=== PATIENT | female | born 1945 | race Caucasian/White ===

== ENCOUNTER 2021-06-08 03:47 | Inpatient (IN) ==
[2021-06-08] MEDS ORDERED: Ondansetron 4 MG/2 ML VIAL IVP PRN (06:35)
[2021-06-08] MEDS ORDERED: Naloxone 0.4 MG/ML INJ IVP PRN (06:35)
[2021-06-08] MEDS ORDERED: *HR* Promethazine 25 MG/ML VIAL IM PRN (06:35)
[2021-06-08] MEDS ORDERED: Vancomycin 1,750 MG in 0.9 % Sodium Chloride 250 ML IVPB SCH (07:00)
[2021-06-08] MEDS: Cefepime HCl 2,000 MG in 0.9 % Sodium Chloride Mini Bag 100 ML IVP SCH ×3 (07:46→23:37)
[2021-06-08] MEDS ORDERED: Isovue-370 500 ML BOTTLE IVP ONE (08:09)
[2021-06-08] MEDS: Ringers Solution, Lactated 1,000 ML IVC SCH ×2 (08:20→16:45)
[2021-06-08] MEDS ORDERED: Gadolinium Contrast Agent (WT Based) IV PRN (09:13)
[2021-06-08] MEDS ORDERED: Dextrose Gel 15 GM/37.5 ML TUBE PO PRN ×2 (09:15)
[2021-06-08] MEDS ORDERED: *HR* Dextrose 50 % in Water (Syg) 50 ML SYRINGE IVP PRN (09:15)
[2021-06-08] MEDS ORDERED: D5% in Water 1,000 ML IVC PRN (09:15)
[2021-06-08 09:22] LABS: Bilirubin,Urine Negative (Negative); Blood,Urine Small (Negative); Clarity,Urine Clear (Clear); Color,Urine Yellow (Yellow); Glucose,Urine (UA) Normal (Normal); Ketones,Urine Negative (Negative); Leukocyte Esterase,Urine Negative (Negative); Mucus,Urine Few per lpf (None-Few); Nitrite,Urine Negative (Negative); PH,Urine 6.5 pH Units (5.0-8.0); Protein,Urine 30 mg/dL (Neg-Trace); RBC,Urine 15-30 per hpf (0-3); Specific Gravity,Urine > 1.030 (1.010-1.025); Squamous Epithelial Cell,Urine Few per hpf (None-Few); WBC,Urine 0-3 per hpf (0-3)
[2021-06-08 10:48] LABS: % Iron Saturation 14 % (15-50); Iron 45 mcg/dL (50-170); Transferrin 223 mg/dL (203-362)
[2021-06-08 11:06] LABS: Ferritin 131 ng/mL (10-120)
[2021-06-08 11:11] LABS: Folate 16.1 ng/mL (3.0-16.0)
[2021-06-08] MEDS: Pantoprazole 40 MG VIAL IVP SCH (11:52)
[2021-06-08] MEDS ORDERED: Insulin LISPRO 300 UNITS/3 ML VIAL SUBQ SCH (12:00)
[2021-06-08] MEDS ORDERED: Lactulose Oral Soln 20 GM/30 ML UDC PO SCH (13:00)
[2021-06-08] MEDS: Vancomycin 1,500 MG/265 ML IV.SOLN IVPB SCH (16:45)
[2021-06-08] MEDS: *HR* Heparin 5,000 UNIT/ML VIAL SQ SCH (16:45)
[2021-06-08] MEDS: Insulin LISPRO 300 UNITS/3 ML VIAL SUBQ SCH ×2 (17:09→21:15)
[2021-06-08] MEDS: Lactulose Oral Soln 20 GM/30 ML UDC PO SCH (21:16)
[2021-06-09] MEDS: Vancomycin 1,500 MG/265 ML IV.SOLN IVPB SCH ×2 (03:46→17:50)
[2021-06-09] MEDS: *HR* Heparin 5,000 UNIT/ML VIAL SQ SCH ×2 (05:57→17:16)
[2021-06-09 06:59] LABS: Basophils # 0.1 K/mcL (0.0-0.2); Basophils % 0.8 %; Eosinophils # 0.2 K/mcL (0.0-0.6); Eosinophils % 2.5 %; Hematocrit 25.6 % (35.3-44.9); Hemoglobin 8.2 g/dL (11.5-15.4); Immature Granulocytes % 0.3 % (0-4); Immature Platelets 2.2 % (1.1-6.1); Lymphocytes # 0.9 K/mcL (0.6-4.6); Lymphocytes % 13.9 %; Mean Corpuscular Hemoglobin 35.2 pg (28.0-33.3); Mean Corpuscular Volume 109.9 fL (83.0-100.0); Mean Platelet Volume 10.3 fL (9.4-12.4); Monocytes # 0.8 K/mcL (0.0-1.3); Monocytes % 12.7 %; Neutrophils # 4.3 K/mcL (1.6-8.9); Platelet Count 84 K/mcL (140-400); Red Blood Count 2.33 M/mcL (3.82-4.97); Red Cell Distribution Width 17.6 % (11.5-14.5); Segmented Neutrophils % 69.8 %; White Blood Count 6.1 K/mcL (4.3-11.1)
[2021-06-09 07:17] LABS: Alanine Aminotransferase 22 Units/L (7-52); Albumin 2.7 g/dL (3.5-5.7); Alkaline Phosphatase 65 Units/L (34-104); Aspartate Amino Transferase 50 Units/L (13-39); BUN/Creatinine Ratio 26 (6-26); Bilirubin,Total 3.1 mg/dL (0.3-1.0); Blood Urea Nitrogen 14 mg/dL (8-23); Calcium 8.1 mg/dL (8.6-10.3); Carbon Dioxide 23 mEq/L (23-29); Chloride 105 mEq/L (98-107); Globulin 2.8 g/dL (2.4-3.5); Glucose 109 mg/dL (70-105); Osmolality,Calculated 281 (280-300); Potassium 3.6 mEq/L (3.5-5.1); Sodium 135 mEq/L (136-145); Total Protein 5.5 g/dL (6.4-8.9); eGFR For African Americans > 60 (> 60); eGFR For Non-African Americans > 60 (> 60)
[2021-06-09] MEDS: Lactulose Oral Soln 20 GM/30 ML UDC PO SCH ×2 (08:07→21:21)
[2021-06-09] MEDS: Insulin LISPRO 300 UNITS/3 ML VIAL SUBQ SCH ×4 (08:07→21:20)
[2021-06-09] MEDS: Pantoprazole 40 MG VIAL IVP SCH (09:35)
[2021-06-09] MEDS: Cefepime HCl 2,000 MG in 0.9 % Sodium Chloride Mini Bag 100 ML IVPB SCH ×2 (09:42→17:19)
[2021-06-09 10:42] LABS: INR 1.6; Prothrombin Time 17.4 Seconds (9.4-12.1)
[2021-06-09] MEDS: Acetaminophen 325 MG TABLET PO PRN (13:09)
[2021-06-10] MEDS: Cefepime HCl 2,000 MG in 0.9 % Sodium Chloride Mini Bag 100 ML IVPB SCH ×4 (00:13→23:28)
[2021-06-10] MEDS: Vancomycin 1,500 MG/265 ML IV.SOLN IVPB SCH ×2 (04:14→17:54)
[2021-06-10] MEDS: *HR* Heparin 5,000 UNIT/ML VIAL SQ SCH ×2 (05:36→17:53)
[2021-06-10] MEDS: Insulin LISPRO 300 UNITS/3 ML VIAL SUBQ SCH ×4 (08:17→20:17)
[2021-06-10] MEDS: Pantoprazole 40 MG VIAL IVP SCH (08:45)
[2021-06-10] MEDS: Lactulose Oral Soln 20 GM/30 ML UDC PO SCH ×2 (08:45→20:17)
[2021-06-10 11:42] LABS: Red Cell Distribution Width 17.6 % (11.5-14.5)
[2021-06-10 11:43] LABS: Basophils # 0.1 K/mcL (0.0-0.2); Basophils % 0.7 %; Eosinophils # 0.2 K/mcL (0.0-0.6); Eosinophils % 2.5 %; Hematocrit 26.6 % (35.3-44.9); Hemoglobin 8.8 g/dL (11.5-15.4); Immature Granulocytes % 0.4 % (0-4); Immature Platelets 2.4 % (1.1-6.1); Lymphocytes # 1.1 K/mcL (0.6-4.6); Lymphocytes % 15.7 %; Mean Corpuscular HGB Conc 33.1 g/dL (31.6-35.5); Mean Corpuscular Hemoglobin 36.5 pg (28.0-33.3); Mean Corpuscular Volume 110.4 fL (83.0-100.0); Mean Platelet Volume 10.6 fL (9.4-12.4); Monocytes # 0.9 K/mcL (0.0-1.3); Monocytes % 13.8 %; Neutrophils # 4.6 K/mcL (1.6-8.9); Platelet Count 127 K/mcL (140-400); Red Blood Count 2.41 M/mcL (3.82-4.97); Segmented Neutrophils % 66.9 %; White Blood Count 6.8 K/mcL (4.3-11.1)
[2021-06-10 11:57] LABS: BUN/Creatinine Ratio 24 (6-26); Blood Urea Nitrogen 15 mg/dL (8-23); Calcium 8.5 mg/dL (8.6-10.3); Carbon Dioxide 24 mEq/L (23-29); Chloride 105 mEq/L (98-107); Glucose 157 mg/dL (70-105); Osmolality,Calculated 284 (280-300); Potassium 4.1 mEq/L (3.5-5.1); Sodium 135 mEq/L (136-145); eGFR For African Americans > 60 (> 60); eGFR For Non-African Americans > 60 (> 60)
[2021-06-11 03:38] LABS: Basophils # 0.1 K/mcL (0.0-0.2); Eosinophils # 0.3 K/mcL (0.0-0.6); Eosinophils % 4.7 %; Hematocrit 27.5 % (35.3-44.9); Hemoglobin 8.8 g/dL (11.5-15.4); Immature Granulocytes % 0.3 % (0-4); Lymphocytes # 1.7 K/mcL (0.6-4.6); Lymphocytes % 27.9 %; Mean Corpuscular Hemoglobin 35.3 pg (28.0-33.3); Mean Corpuscular Volume 110.4 fL (83.0-100.0); Mean Platelet Volume 10.2 fL (9.4-12.4); Monocytes # 0.9 K/mcL (0.0-1.3); Neutrophils # 3.2 K/mcL (1.6-8.9); Platelet Count 106 K/mcL (140-400); Red Blood Count 2.49 M/mcL (3.82-4.97); Red Cell Distribution Width 17.4 % (11.5-14.5); Segmented Neutrophils % 51.1 %; White Blood Count 6.2 K/mcL (4.3-11.1)
[2021-06-11 03:48] LABS: BUN/Creatinine Ratio 29 (6-26); Blood Urea Nitrogen 14 mg/dL (8-23); Calcium 8.5 mg/dL (8.6-10.3); Carbon Dioxide 23 mEq/L (23-29); Chloride 109 mEq/L (98-107); Glucose 116 mg/dL (70-105); Osmolality,Calculated 285 (280-300); Potassium 3.7 mEq/L (3.5-5.1); Sodium 137 mEq/L (136-145); eGFR For African Americans > 60 (> 60); eGFR For Non-African Americans > 60 (> 60)
[2021-06-11] MEDS: Vancomycin 1,500 MG/265 ML IV.SOLN IVPB SCH (04:14)
[2021-06-11] MEDS: *HR* Heparin 5,000 UNIT/ML VIAL SQ SCH ×2 (05:37→18:20)
[2021-06-11] MEDS: Cefepime HCl 2,000 MG in 0.9 % Sodium Chloride Mini Bag 100 ML IVP SCH (07:03)
[2021-06-11] MEDS: Insulin LISPRO 300 UNITS/3 ML VIAL SUBQ SCH ×4 (07:59→22:08)
[2021-06-11] MEDS: Lactulose Oral Soln 20 GM/30 ML UDC PO SCH ×2 (08:23→22:09)
[2021-06-11] MEDS: Cefepime HCl 2,000 MG in 0.9 % Sodium Chloride Mini Bag 100 ML IVPB SCH (08:23)
[2021-06-11] MEDS: Pantoprazole 40 MG VIAL IVP SCH (08:23)
[2021-06-11] MEDS ORDERED: Vancomycin 1,250 MG/262.5 ML IV.SOLN IVPB SCH (16:00)
[2021-06-12] MEDS: Melatonin 3 MG TABLET PO PRN ×2 (00:04→21:11)
[2021-06-12] MEDS: Acetaminophen 325 MG TABLET PO PRN ×2 (00:04→21:11)
[2021-06-12 03:03] LABS: Basophils % 0.9 %; Hematocrit 25.7 % (35.3-44.9); Red Cell Distribution Width 17.2 % (11.5-14.5); Segmented Neutrophils % 52.5 %
[2021-06-12 03:05] LABS: Basophils # 0.1 K/mcL (0.0-0.2); Eosinophils # 0.4 K/mcL (0.0-0.6); Hemoglobin 8.5 g/dL (11.5-15.4); Immature Granulocytes % 0.6 % (0-4); Immature Platelets 1.9 % (1.1-6.1); Lymphocytes # 1.7 K/mcL (0.6-4.6); Lymphocytes % 25.8 %; Mean Corpuscular HGB Conc 33.1 g/dL (31.6-35.5); Mean Corpuscular Volume 108.9 fL (83.0-100.0); Mean Platelet Volume 10.1 fL (9.4-12.4); Monocytes # 0.9 K/mcL (0.0-1.3); Monocytes % 14.2 %; Neutrophils # 3.5 K/mcL (1.6-8.9); Platelet Count 125 K/mcL (140-400); Red Blood Count 2.36 M/mcL (3.82-4.97); White Blood Count 6.6 K/mcL (4.3-11.1)
[2021-06-12 03:20] LABS: BUN/Creatinine Ratio 22 (6-26); Blood Urea Nitrogen 11 mg/dL (8-23); Calcium 8.3 mg/dL (8.6-10.3); Carbon Dioxide 23 mEq/L (23-29); Chloride 108 mEq/L (98-107); Glucose 110 mg/dL (70-105); Osmolality,Calculated 282 (280-300); Potassium 3.7 mEq/L (3.5-5.1); Sodium 136 mEq/L (136-145); eGFR For African Americans > 60 (> 60); eGFR For Non-African Americans > 60 (> 60)
[2021-06-12] MEDS: *HR* Heparin 5,000 UNIT/ML VIAL SQ SCH ×2 (07:01→17:28)
[2021-06-12] MEDS: Insulin LISPRO 300 UNITS/3 ML VIAL SUBQ SCH ×4 (08:19→21:12)
[2021-06-12] MEDS: cephALEXin 500 MG CAPSULE PO SCH ×2 (08:26→21:11)
[2021-06-12] MEDS: Lactulose Oral Soln 20 GM/30 ML UDC PO SCH ×2 (08:26→21:11)
[2021-06-12] MEDS: Pantoprazole 40 MG VIAL IVP SCH (08:26)
[2021-06-12] MEDS: Amoxicillin 500 MG CAPSULE PO SCH ×2 (14:22→21:10)
[2021-06-12 17:53] LABS: Adenovirus Not Detected (Not Detect); Bordetella Pertussis Not Detected (Not Detect); Chlamydophila pneumoniae Not Detected (Not Detect); Coronavirus 229E Not Detected (Not Detect); Coronavirus HKU1 Not Detected (Not Detect); Coronavirus NL63 Not Detected (Not Detect); Coronavirus OC43 Not Detected (Not Detect); Human Metapneumovirus Not Detected (Not Detect); Human Rhinovirus/Enterovirus Not Detected (Not Detect); Influenza A Subtype 2009 H1 Not Detected (Not Detect); Influenza B Not Detected (Not Detect); Mycoplasma pneumoniae Not Detected (Not Detect); Parainfluenza Virus 1 Not Detected (Not Detect); Parainfluenza Virus 2 Not Detected (Not Detect); Parainfluenza Virus 3 Not Detected (Not Detect); Parainfluenza Virus 4 Not Detected (Not Detect); Respiratory Syncytial Virus Not Detected (Not Detect); SARS-CoV-2 Not Detected (Not Detect)
[2021-06-13 02:36] LABS: Red Cell Distribution Width 17.2 % (11.5-14.5)
[2021-06-13 02:38] LABS: Basophils # 0.1 K/mcL (0.0-0.2); Basophils % 0.8 %; Eosinophils % 7.2 %; Hematocrit 27.6 % (35.3-44.9); Immature Granulocytes % 1.3 % (0-4); Immature Platelets 2.1 % (1.1-6.1); Lymphocytes # 1.6 K/mcL (0.6-4.6); Lymphocytes % 25.4 %; Mean Corpuscular HGB Conc 32.6 g/dL (31.6-35.5); Mean Corpuscular Hemoglobin 36.1 pg (28.0-33.3); Mean Corpuscular Volume 110.8 fL (83.0-100.0); Mean Platelet Volume 9.8 fL (9.4-12.4); Monocytes # 0.8 K/mcL (0.0-1.3); Monocytes % 12.2 %; Neutrophils # 3.3 K/mcL (1.6-8.9); Platelet Count 143 K/mcL (140-400); Red Blood Count 2.49 M/mcL (3.82-4.97); Segmented Neutrophils % 53.1 %; White Blood Count 6.2 K/mcL (4.3-11.1)
[2021-06-13 02:44] LABS: Eosinophils # 0.5 K/mcL (0.0-0.6)
[2021-06-13 02:52] LABS: BUN/Creatinine Ratio 24 (6-26); Blood Urea Nitrogen 10 mg/dL (8-23); Calcium 8.4 mg/dL (8.6-10.3); Carbon Dioxide 24 mEq/L (23-29); Chloride 111 mEq/L (98-107); Glucose 104 mg/dL (70-105); Osmolality,Calculated 283 (280-300); Potassium 3.7 mEq/L (3.5-5.1); Sodium 137 mEq/L (136-145); eGFR For African Americans > 60 (> 60); eGFR For Non-African Americans > 60 (> 60)
[2021-06-13 02:58] LABS: Anisocytosis 1+ (Not Present); Macrocytosis Present (Not Present); Platelet Estimate Normal (Normal); Polychromasia 1+ (Not Present); Reactive Lymphocytes Present (Not Present)
[2021-06-13] MEDS: *HR* Heparin 5,000 UNIT/ML VIAL SQ SCH (06:38)
[2021-06-13 07:09] VITALS: BP 129/72; PULSE 62; TEMP 97.8; O2SAT 96
[2021-06-13] MEDS: Insulin LISPRO 300 UNITS/3 ML VIAL SUBQ SCH (07:12)
[2021-06-13] MEDS: Lactulose Oral Soln 20 GM/30 ML UDC PO SCH (08:21)
[2021-06-13] MEDS: Pantoprazole 40 MG VIAL IVP SCH (08:21)
== END 2021-06-13 10:51 | DRG 871 ==
LOC: SUATTDRO 06:21 → 2NENU 06:21 → 3BNU 06-09 12:38
PROVIDERS: ADMIT Internal Medicine; ATTEND Internal Medicine

== ENCOUNTER 2021-07-30 17:50 | Observation (INO) ==
[2021-07-30] MEDS ORDERED: Ondansetron ODT 4 MG TAB.RAPDIS SL PRN (21:15)
[2021-07-30] MEDS ORDERED: Naloxone 0.4 MG/ML INJ IVP PRN (21:15)
[2021-07-30] MEDS ORDERED: Melatonin 3 MG TABLET PO PRN (21:15)
[2021-07-30 21:43] LABS: Basophils % 0.8 %; Eosinophils # 0.1 K/mcL (0.0-0.6); Eosinophils % 2.1 %; Hematocrit 31.9 % (35.3-44.9); Hemoglobin 11.1 g/dL (11.5-15.4); Immature Granulocytes % 0.2 % (0-4); Lymphocytes # 1.8 K/mcL (0.6-4.6); Lymphocytes % 35.3 %; Mean Corpuscular HGB Conc 34.8 g/dL (31.6-35.5); Mean Corpuscular Hemoglobin 36.2 pg (28.0-33.3); Mean Corpuscular Volume 103.9 fL (83.0-100.0); Mean Platelet Volume 11.4 fL (9.4-12.4); Monocytes # 0.7 K/mcL (0.0-1.3); Monocytes % 13.2 %; Neutrophils # 2.5 K/mcL (1.6-8.9); Red Blood Count 3.07 M/mcL (3.82-4.97); Red Cell Distribution Width 15.9 % (11.5-14.5); Segmented Neutrophils % 48.4 %; White Blood Count 5.2 K/mcL (4.3-11.1)
[2021-07-30 21:44] LABS: Platelet Count 72 K/mcL (140-400)
[2021-07-30 22:01] LABS: Alanine Aminotransferase 25 Units/L (7-52); Albumin 2.9 g/dL (3.5-5.7); Albumin/Globulin Ratio 0.9 (1.1-2.2); Alkaline Phosphatase 82 Units/L (34-104); Aspartate Amino Transferase 48 Units/L (13-39); BUN/Creatinine Ratio 18 (6-26); Bilirubin,Total 2.4 mg/dL (0.3-1.0); Blood Urea Nitrogen 9 mg/dL (8-23); Calcium 8.8 mg/dL (8.6-10.3); Carbon Dioxide 26 mEq/L (23-29); Chloride 107 mEq/L (98-107); Globulin 3.2 g/dL (2.4-3.5); Glucose 152 mg/dL (70-105); Magnesium 1.8 mg/dL (1.6-2.6); Osmolality,Calculated 292 (280-300); Phosphorous 2.4 mg/dL (2.7-4.5); Potassium 3.3 mEq/L (3.5-5.1); Sodium 140 mEq/L (136-145); Total Protein 6.1 g/dL (6.4-8.9); eGFR For African Americans > 60 (> 60); eGFR For Non-African Americans > 60 (> 60)
[2021-07-30 22:08] LABS: Troponin I < 0.03 ng/mL (< 0.04)
[2021-07-30 22:21] LABS: Bilirubin,Urine Negative (Negative); Blood,Urine Negative (Negative); Clarity,Urine Clear (Clear); Color,Urine Yellow (Yellow); Glucose,Urine (UA) Normal (Normal); Ketones,Urine Negative (Negative); Leukocyte Esterase,Urine Negative (Negative); Nitrite,Urine Negative (Negative); Protein,Urine Trace mg/dL (Neg-Trace); Specific Gravity,Urine 1.024 (1.010-1.025)
[2021-07-30 22:23] LABS: Bilirubin,Direct 0.8 mg/dL (0.0-0.2); Bilirubin,Indirect 1.6 mg/dL (0.0-1.0)
[2021-07-30 23:07] LABS: Acetaminophen < 10 mcg/mL (10-20); Ethanol < 10 mg/dL (Less than 10); Salicylate < 2.5 mg/dL (15.0-30.0)
[2021-07-30 23:21] LABS: Amphetamine Screen,Urine Negative ng/mL (Cutoff=1000); Barbiturate Screen,Urine Negative ng/mL (Cutoff=200); Benzodiazepines Screen,Urine Negative ng/mL (Cutoff=200); Cannabinoid Screen,Urine Negative ng/mL (Cutoff = 50); Cocaine Screen,Urine Negative ng/mL (Cutoff= 300); Opiate Screen,Urine Negative ng/mL (Cutoff=300); Phencyclidine Screen,Urine Negative ng/mL (Cutoff=25)
[2021-07-30 23:35] LABS: Thyroid Stimulating Hormone 1.232 mcIU/mL (0.340-5.600)
[2021-07-30] MEDS: *HR* Enoxaparin 40 MG/0.4 ML SYRINGE SQ SCH (23:58)
[2021-07-31 00:06] LABS: Folate 18.6 ng/mL (3.0-16.0); Vitamin B12 1242 pg/mL (250-1100)
[2021-07-31 02:57] LABS: VBG HCO3 25 mEq/L (21-27); VBG PCO2 35 mmHg (41-51); VBG PH 7.47 pH Units (7.32-7.42); VBG PO2 149 mmHg (25-50)
[2021-07-31] MEDS: *HR* Enoxaparin 40 MG/0.4 ML SYRINGE SQ SCH (09:11)
[2021-07-31] MEDS: Lactulose Oral Soln 20 GM/30 ML UDC PO SCH (20:19)
[2021-07-31] MEDS: Carbidopa/Levodopa ER 50/200 TABLET PO SCH (20:19)
[2021-08-01] MEDS: *HR* Enoxaparin 40 MG/0.4 ML SYRINGE SQ SCH (04:42)
[2021-08-01] MEDS: Multivit/Ca/Min/Fe/FA 1 TAB TABLET PO SCH (09:16)
[2021-08-01] MEDS: Lactulose Oral Soln 20 GM/30 ML UDC PO SCH ×4 (09:16→20:17)
[2021-08-01] MEDS: Loratadine 10 MG TABLET PO SCH (09:16)
[2021-08-01] MEDS: Furosemide 40 MG TABLET PO SCH (09:17)
[2021-08-01] MEDS: PARoxetine 20 MG TABLET PO SCH (09:17)
[2021-08-01] MEDS: Carbidopa/Levodopa ER 50/200 TABLET PO SCH ×3 (09:19→20:18)
[2021-08-01] MEDS: Fluticasone Propionate Nasal 50 MCG/SPRAY BOTTLE NS SCH (09:20)
[2021-08-02 04:40] LABS: Hemoglobin 11.2 g/dL (11.5-15.4); Lymphocytes % 37.5 %; Red Cell Distribution Width 15.9 % (11.5-14.5)
[2021-08-02 04:41] LABS: Basophils # 0.1 K/mcL (0.0-0.2); Eosinophils # 0.1 K/mcL (0.0-0.6); Eosinophils % 2.1 %; Immature Granulocytes % 0.2 % (0-4); Immature Platelets 2.5 % (1.1-6.1); Lymphocytes # 1.9 K/mcL (0.6-4.6); Mean Corpuscular Hemoglobin 36.1 pg (28.0-33.3); Mean Corpuscular Volume 103.2 fL (83.0-100.0); Mean Platelet Volume 11.2 fL (9.4-12.4); Monocytes # 0.7 K/mcL (0.0-1.3); Monocytes % 12.7 %; Neutrophils # 2.4 K/mcL (1.6-8.9); Segmented Neutrophils % 46.5 %; White Blood Count 5.1 K/mcL (4.3-11.1)
[2021-08-02 04:43] LABS: Platelet Count 68 K/mcL (140-400)
[2021-08-02 05:01] LABS: BUN/Creatinine Ratio 14 (6-26); Blood Urea Nitrogen 7 mg/dL (8-23); Calcium 9.1 mg/dL (8.6-10.3); Carbon Dioxide 24 mEq/L (23-29); Chloride 110 mEq/L (98-107); Glucose 105 mg/dL (70-105); Osmolality,Calculated 290 (280-300); Potassium 3.5 mEq/L (3.5-5.1); Sodium 141 mEq/L (136-145); eGFR For African Americans > 60 (> 60); eGFR For Non-African Americans > 60 (> 60)
[2021-08-02] MEDS: *HR* Enoxaparin 40 MG/0.4 ML SYRINGE SQ SCH (05:43)
[2021-08-02] MEDS: Lactulose Oral Soln 20 GM/30 ML UDC PO SCH ×4 (08:09→20:03)
[2021-08-02] MEDS: PARoxetine 20 MG TABLET PO SCH (08:10)
[2021-08-02] MEDS: Carbidopa/Levodopa ER 50/200 TABLET PO SCH ×3 (08:10→20:04)
[2021-08-02] MEDS: Furosemide 40 MG TABLET PO SCH (08:11)
[2021-08-02] MEDS: Multivit/Ca/Min/Fe/FA 1 TAB TABLET PO SCH (08:11)
[2021-08-02] MEDS: Loratadine 10 MG TABLET PO SCH (08:11)
[2021-08-02] MEDS: Fluticasone Propionate Nasal 50 MCG/SPRAY BOTTLE NS SCH (08:17)
[2021-08-03] MEDS: Fluticasone Propionate Nasal 50 MCG/SPRAY BOTTLE NS SCH (08:14)
[2021-08-03] MEDS: Multivit/Ca/Min/Fe/FA 1 TAB TABLET PO SCH (08:15)
[2021-08-03] MEDS: PARoxetine 20 MG TABLET PO SCH (08:15)
[2021-08-03] MEDS: Loratadine 10 MG TABLET PO SCH (08:15)
[2021-08-03] MEDS: Furosemide 40 MG TABLET PO SCH (08:15)
[2021-08-03] MEDS: Carbidopa/Levodopa ER 50/200 TABLET PO SCH ×2 (08:16→15:37)
[2021-08-03] MEDS: Lactulose Oral Soln 20 GM/30 ML UDC PO SCH ×2 (08:19→12:37)
[2021-08-03 13:28] LABS: Adenovirus Not Detected (Not Detect); Coronavirus 229E Not Detected (Not Detect); Coronavirus HKU1 Not Detected (Not Detect); Coronavirus NL63 Not Detected (Not Detect); Coronavirus OC43 Not Detected (Not Detect); Human Metapneumovirus Not Detected (Not Detect); Human Rhinovirus/Enterovirus Not Detected (Not Detect); SARS-CoV-2 Not Detected (Not Detect)
[2021-08-03 13:29] LABS: Bordetella Pertussis Not Detected (Not Detect); Chlamydophila pneumoniae Not Detected (Not Detect); Influenza A Subtype 2009 H1 Not Detected (Not Detect); Influenza B Not Detected (Not Detect); Mycoplasma pneumoniae Not Detected (Not Detect); Parainfluenza Virus 1 Not Detected (Not Detect); Parainfluenza Virus 2 Not Detected (Not Detect); Parainfluenza Virus 3 Not Detected (Not Detect); Parainfluenza Virus 4 Not Detected (Not Detect); Respiratory Syncytial Virus Not Detected (Not Detect)
[2021-08-03 15:40] VITALS: BP 116/64; PULSE 68; TEMP 97.6; O2SAT 97
== END 2021-08-03 16:16 ==
LOC: 2ANU → SUATTDRO 20:13
PROVIDERS: ADMIT Internal Medicine; ATTEND Internal Medicine

== ENCOUNTER 2022-01-12 23:46 | Inpatient (IN) ==
[2022-01-13] MEDS ORDERED: Naloxone 0.4 MG/ML INJ IVP PRN (03:05)
[2022-01-13] MEDS ORDERED: Ondansetron 4 MG/2 ML VIAL IVP PRN (03:05)
[2022-01-13] MEDS ORDERED: Ipratropium/Albuterol Neb 3 ML IH PRN (04:00)
[2022-01-13] MEDS ORDERED: *HR* Dextrose 50 % in Water (Syg) 50 ML SYRINGE IVP PRN (04:31)
[2022-01-13] MEDS ORDERED: Dextrose Gel 15 GM/37.5 ML TUBE PO PRN ×2 (04:31)
[2022-01-13] MEDS ORDERED: D5% in Water 1,000 ML IVC PRN (04:31)
[2022-01-13 05:41] LABS: Basophils % 0.4 %; Lymphocytes % 2.8 %; Monocytes % 4.3 %
[2022-01-13 05:43] LABS: Basophils # 0.2 K/mcL (0.0-0.2); Eosinophils % 0.1 %; Hemoglobin 10.5 g/dL (11.5-15.4); Lymphocytes # 1.1 K/mcL (0.6-4.6); Mean Corpuscular HGB Conc 33.9 g/dL (31.6-35.5); Mean Corpuscular Hemoglobin 36.5 pg (28.0-33.3); Mean Corpuscular Volume 107.6 fL (83.0-100.0); Mean Platelet Volume 8.9 fL (9.4-12.4); Monocytes # 1.6 K/mcL (0.0-1.3); Neutrophils # 34.7 K/mcL (1.6-8.9); Platelet Count 177 K/mcL (140-400); Red Blood Count 2.88 M/mcL (3.82-4.97); Red Cell Distribution Width 16.9 % (11.5-14.5); Segmented Neutrophils % 91.4 %
[2022-01-13 05:46] LABS: Prothrombin Time 22.5 Seconds (9.4-12.1)
[2022-01-13 05:56] LABS: Albumin 2.2 g/dL (3.5-5.7); Albumin/Globulin Ratio 0.6 (1.1-2.2); Bilirubin,Direct 2.5 mg/dL (0.0-0.2); Bilirubin,Total 5.5 mg/dL (0.3-1.0); Globulin 3.6 g/dL (2.4-3.5); Total Protein 5.8 g/dL (6.4-8.9)
[2022-01-13 05:57] LABS: BUN/Creatinine Ratio 18 (6-26); Blood Urea Nitrogen 12 mg/dL (8-23); Calcium 7.5 mg/dL (8.6-10.3); Carbon Dioxide 25 mEq/L (23-29); Chloride 102 mEq/L (98-107); Glucose 133 mg/dL (70-105); Magnesium 1.8 mg/dL (1.6-2.6); Osmolality,Calculated 284 (280-300); Phosphorous 3.7 mg/dL (2.7-4.5); Potassium 3.7 mEq/L (3.5-5.1); Sodium 136 mEq/L (136-145)
[2022-01-13 06:18] LABS: Folate 7.2 ng/mL (3.0-16.0)
[2022-01-13 06:22] LABS: Anisocytosis 1+ (Not Present); Basophilic Stippling 1+ (Not Present); Platelet Estimate Normal (Normal); Polychromasia 1+ (Not Present); Toxic Granulation Present (Not Present)
[2022-01-13 06:41] LABS: Estimated Average Glucose 94 mg/dl; Hemoglobin A1C 4.9 %
[2022-01-13] MEDS: Insulin LISPRO 300 UNITS/3 ML VIAL SUBQ SCH ×3 (09:22→17:29)
[2022-01-13] MEDS: Piperacillin/Tazobactam 3.375 GM in 0.9 % Sodium Chloride Mini Bag 100 ML IVPB SCH ×2 (09:31→17:29)
[2022-01-13] MEDS: Pantoprazole 40 MG VIAL IVP SCH (09:31)
[2022-01-13] MEDS: Vancomycin Oral Soln 125 MG/2.5 ML UDC PO SCH ×4 (11:21→20:16)
[2022-01-13 11:22] LABS: Adenovirus Not Detected (Not Detect); Coronavirus 229E Not Detected (Not Detect); Coronavirus HKU1 Not Detected (Not Detect); Coronavirus NL63 Not Detected (Not Detect); Coronavirus OC43 Not Detected (Not Detect)
[2022-01-13 11:23] LABS: Bordetella Pertussis Not Detected (Not Detect); Chlamydophila pneumoniae Not Detected (Not Detect); Human Metapneumovirus Not Detected (Not Detect); Human Rhinovirus/Enterovirus Not Detected (Not Detect); Influenza A Subtype 2009 H1 Not Detected (Not Detect); Influenza B Not Detected (Not Detect); Mycoplasma pneumoniae Not Detected (Not Detect); Parainfluenza Virus 1 Not Detected (Not Detect); Parainfluenza Virus 2 Not Detected (Not Detect); Parainfluenza Virus 3 Not Detected (Not Detect); Parainfluenza Virus 4 Not Detected (Not Detect); Respiratory Syncytial Virus Not Detected (Not Detect); SARS-CoV-2 Not Detected (Not Detect)
[2022-01-13] MEDS ORDERED: GuaiFENesin/Dextromethorphan TABLET PO PRN (11:45)
[2022-01-13] MEDS ORDERED: Loratadine 10 MG TABLET PO PRN (11:50)
[2022-01-13 11:53] LABS: Campylobacter by PCR Not detected (Not detect)
[2022-01-13 12:02] LABS: Adenovirus F 40/41 PCR Not detected (Not detect); Astrovirus PCR Not detected (Not detect); C.difficile Toxin A/B Gene PCR DETECTED (Not detect); Cryptosporidium by PCR Not detected (Not detect); Cyclospora cayetanensis PCR Not detected (Not detect); Entamoeba histolytica PCR Not detected (Not detect); Enteroaggregative E.coli(EAEC) Not detected (Not detect); Enteropathogenic E.coli(EPEC) Not detected (Not detect); Enterotoxigenic E.coli (ETEC) Not detected (Not detect); Giardia lamblia PCR Not detected (Not detect); Norovirus GI/GII PCR Not detected (Not detect); Plesiomonas shigelloides PCR Not detected (Not detect); Rotavirus A PCR Not detected (Not detect); Salmonella PCR Not detected (Not detect); Sapovirus PCR Not detected (Not detect); Shig/EnteroinvasiveE coli EIEC Not detected (Not detect); Shigalike tox-prod E coli STEC Not detected (Not detect); Vibrio PCR Not detected (Not detect); Vibrio cholerae PCR Not detected (Not detect); Yersinia enterocolitica PCR Not detected (Not detect)
[2022-01-13] MEDS ORDERED: Vancomycin 1,750 MG/517.5 ML IV.SOLN IVPB ONE (12:24)
[2022-01-13] MEDS: Lactulose Oral Soln 20 GM/30 ML UDC PO SCH ×3 (12:53→20:15)
[2022-01-13] MEDS: predniSONE 20 MG TABLET PO SCH (12:53)
[2022-01-13] MEDS: Carbidopa/Levodopa 25/100 TABLET PO SCH ×2 (15:11→20:16)
[2022-01-13] MEDS: Lactobacillus 1 EACH CAP.SPRINK PO SCH (20:16)
[2022-01-14] MEDS: Piperacillin/Tazobactam 3.375 GM in 0.9 % Sodium Chloride Mini Bag 100 ML IVPB SCH ×3 (01:05→15:22)
[2022-01-14 05:40] LABS: Hematocrit 27.2 % (35.3-44.9); Hemoglobin 9.2 g/dL (11.5-15.4); Mean Corpuscular HGB Conc 33.8 g/dL (31.6-35.5); Mean Corpuscular Hemoglobin 35.9 pg (28.0-33.3); Mean Corpuscular Volume 106.3 fL (83.0-100.0); Mean Platelet Volume 8.7 fL (9.4-12.4); Platelet Count 140 K/mcL (140-400); Red Blood Count 2.56 M/mcL (3.82-4.97); Red Cell Distribution Width 16.4 % (11.5-14.5)
[2022-01-14 05:56] LABS: Lymphocytes # 0.8 K/mcL (0.6-4.6); Monocytes # 0.8 K/mcL (0.0-1.3); Neutrophils # 37.4 K/mcL (1.6-8.9); Platelet Estimate Normal (Normal)
[2022-01-14 06:03] LABS: Albumin 2.1 g/dL (3.5-5.7); Albumin/Globulin Ratio 0.7 (1.1-2.2); Bilirubin,Total 4.1 mg/dL (0.3-1.0); Calcium 7.7 mg/dL (8.6-10.3); Globulin 3.2 g/dL (2.4-3.5); Potassium 3.3 mEq/L (3.5-5.1); Total Protein 5.3 g/dL (6.4-8.9)
[2022-01-14] MEDS: Pantoprazole 40 MG VIAL IVP SCH (08:55)
[2022-01-14] MEDS: Vancomycin Oral Soln 125 MG/2.5 ML UDC PO SCH ×4 (08:55→20:52)
[2022-01-14] MEDS: Lactobacillus 1 EACH CAP.SPRINK PO SCH ×2 (08:55→20:51)
[2022-01-14] MEDS: Carbidopa/Levodopa 25/100 TABLET PO SCH ×3 (08:55→20:52)
[2022-01-14] MEDS: Furosemide 40 MG TABLET PO SCH (08:55)
[2022-01-14] MEDS: predniSONE 20 MG TABLET PO SCH (08:55)
[2022-01-14] MEDS: Lactulose Oral Soln 20 GM/30 ML UDC PO SCH ×4 (08:56→20:52)
[2022-01-14] MEDS: Insulin LISPRO 300 UNITS/3 ML VIAL SUBQ SCH ×3 (08:56→17:36)
[2022-01-14] MEDS: 0.9 % Sodium Chloride 1,000 ML IVC SCH (12:47)
[2022-01-14] MEDS ORDERED: Vancomycin 1,250 MG/262.5 ML IV.SOLN IVPB SCH (15:00)
[2022-01-14] MEDS: Doxycycline 100 MG CAPSULE PO SCH (23:11)
[2022-01-15] MEDS: Piperacillin/Tazobactam 3.375 GM in 0.9 % Sodium Chloride Mini Bag 100 ML IVPB SCH ×4 (01:01→23:36)
[2022-01-15 05:38] LABS: Basophils % 0.3 %; Eosinophils % 0.2 %; Immature Granulocytes % 3.6 % (0-4)
[2022-01-15 05:40] LABS: Basophils # 0.1 K/mcL (0.0-0.2); Eosinophils # 0.1 K/mcL (0.0-0.6); Hematocrit 24.8 % (35.3-44.9); Hemoglobin 8.7 g/dL (11.5-15.4); Lymphocytes # 1.8 K/mcL (0.6-4.6); Mean Corpuscular HGB Conc 35.1 g/dL (31.6-35.5); Mean Corpuscular Hemoglobin 37.3 pg (28.0-33.3); Mean Corpuscular Volume 106.4 fL (83.0-100.0); Mean Platelet Volume 9.3 fL (9.4-12.4); Monocytes # 2.3 K/mcL (0.0-1.3); Monocytes % 6.3 %; Platelet Count 163 K/mcL (140-400); Red Blood Count 2.33 M/mcL (3.82-4.97); Red Cell Distribution Width 16.6 % (11.5-14.5); Segmented Neutrophils % 84.6 %
[2022-01-15 05:59] LABS: Neutrophils # 30.9 K/mcL (1.6-8.9); White Blood Count 36.5 K/mcL (4.3-11.1)
[2022-01-15] MEDS: 0.9 % Sodium Chloride 1,000 ML IVC SCH (06:07)
[2022-01-15 06:19] LABS: Alanine Aminotransferase 16 Units/L (7-52); Albumin/Globulin Ratio 0.6 (1.1-2.2); Alkaline Phosphatase 124 Units/L (34-104); Aspartate Amino Transferase 71 Units/L (13-39); BUN/Creatinine Ratio 24 (6-26); Bilirubin,Total 3.3 mg/dL (0.3-1.0); Blood Urea Nitrogen 15 mg/dL (8-23); Calcium 7.7 mg/dL (8.6-10.3); Carbon Dioxide 26 mEq/L (23-29); Chloride 105 mEq/L (98-107); Globulin 3.2 g/dL (2.4-3.5); Glucose 185 mg/dL (70-105); Osmolality,Calculated 284 (280-300); Potassium 3.4 mEq/L (3.5-5.1); Sodium 134 mEq/L (136-145); Total Protein 5.2 g/dL (6.4-8.9)
[2022-01-15] MEDS ORDERED: Iopamidol - 370 500 ML MLS IVP ONE (07:00)
[2022-01-15] MEDS: Lactulose Oral Soln 20 GM/30 ML UDC PO SCH ×4 (08:43→21:43)
[2022-01-15] MEDS: Lactobacillus 1 EACH CAP.SPRINK PO SCH ×2 (08:43→21:43)
[2022-01-15] MEDS: Vancomycin Oral Soln 125 MG/2.5 ML UDC PO SCH ×4 (08:43→21:43)
[2022-01-15] MEDS: Doxycycline 100 MG CAPSULE PO SCH ×2 (08:44→21:43)
[2022-01-15] MEDS: Furosemide 40 MG TABLET PO SCH (08:44)
[2022-01-15] MEDS: Pantoprazole 40 MG VIAL IVP SCH (08:44)
[2022-01-15] MEDS: Spironolactone 25 MG TABLET PO SCH (08:44)
[2022-01-15] MEDS: Carbidopa/Levodopa 25/100 TABLET PO SCH ×3 (08:44→21:43)
[2022-01-15] MEDS: Insulin LISPRO 300 UNITS/3 ML VIAL SUBQ SCH ×3 (08:45→17:31)
[2022-01-15 12:25] LABS: Bilirubin,Urine Negative (Negative); Blood,Urine Negative (Negative); Clarity,Urine Clear (Clear); Color,Urine Light-Yellow (Yellow); Glucose,Urine (UA) Normal (Normal); Ketones,Urine Negative (Negative); Leukocyte Esterase,Urine Negative (Negative); Nitrite,Urine Negative (Negative); Protein,Urine Negative (Neg-Trace); Specific Gravity,Urine 1.016 (1.010-1.025); Urobilinogen,Urine Normal (Normal)
[2022-01-16 06:02] LABS: Basophils # 0.1 K/mcL (0.0-0.2); Basophils % 0.3 %; Eosinophils # 0.5 K/mcL (0.0-0.6); Eosinophils % 2.4 %; Hematocrit 26.4 % (35.3-44.9); Hemoglobin 8.9 g/dL (11.5-15.4); Immature Granulocytes % 4.9 % (0-4); Lymphocytes # 2.2 K/mcL (0.6-4.6); Lymphocytes % 11.3 %; Mean Corpuscular HGB Conc 33.7 g/dL (31.6-35.5); Mean Corpuscular Hemoglobin 36.6 pg (28.0-33.3); Mean Corpuscular Volume 108.6 fL (83.0-100.0); Mean Platelet Volume 9.2 fL (9.4-12.4); Monocytes # 1.8 K/mcL (0.0-1.3); Monocytes % 9.4 %; Neutrophils # 14.1 K/mcL (1.6-8.9); Platelet Count 151 K/mcL (140-400); Red Blood Count 2.43 M/mcL (3.82-4.97); Red Cell Distribution Width 16.7 % (11.5-14.5); Segmented Neutrophils % 71.7 %; White Blood Count 19.6 K/mcL (4.3-11.1)
[2022-01-16 06:28] LABS: Alanine Aminotransferase 18 Units/L (7-52); Albumin/Globulin Ratio 0.6 (1.1-2.2); Alkaline Phosphatase 123 Units/L (34-104); Aspartate Amino Transferase 121 Units/L (13-39); BUN/Creatinine Ratio 19 (6-26); Blood Urea Nitrogen 12 mg/dL (8-23); Calcium 7.7 mg/dL (8.6-10.3); Carbon Dioxide 27 mEq/L (23-29); Chloride 107 mEq/L (98-107); Globulin 3.1 g/dL (2.4-3.5); Glucose 154 mg/dL (70-105); Osmolality,Calculated 285 (280-300); Potassium 3.2 mEq/L (3.5-5.1); Sodium 136 mEq/L (136-145); Total Protein 5.1 g/dL (6.4-8.9)
[2022-01-16 06:32] LABS: Platelet Estimate Normal (Normal)
[2022-01-16] MEDS: Insulin LISPRO 300 UNITS/3 ML VIAL SUBQ SCH ×3 (07:44→18:18)
[2022-01-16] MEDS: Pantoprazole 40 MG VIAL IVP SCH (09:52)
[2022-01-16] MEDS: Piperacillin/Tazobactam 3.375 GM in 0.9 % Sodium Chloride Mini Bag 100 ML IVPB SCH ×2 (09:53→15:35)
[2022-01-16] MEDS: Lactobacillus 1 EACH CAP.SPRINK PO SCH ×2 (09:54→19:55)
[2022-01-16] MEDS: Vancomycin Oral Soln 125 MG/2.5 ML UDC PO SCH ×4 (09:54→19:54)
[2022-01-16] MEDS: Furosemide 40 MG TABLET PO SCH (09:54)
[2022-01-16] MEDS: Spironolactone 25 MG TABLET PO SCH (09:54)
[2022-01-16] MEDS: Carbidopa/Levodopa 25/100 TABLET PO SCH ×3 (09:54→19:55)
[2022-01-16] MEDS: Doxycycline 100 MG CAPSULE PO SCH ×2 (09:54→19:55)
[2022-01-16] MEDS: Lactulose Oral Soln 20 GM/30 ML UDC PO SCH (10:23)
[2022-01-17] MEDS: Piperacillin/Tazobactam 3.375 GM in 0.9 % Sodium Chloride Mini Bag 100 ML IVPB SCH ×4 (00:47→23:39)
[2022-01-17 03:57] LABS: Basophils # 0.3 K/mcL (0.0-0.2); Basophils % 1.5 %; Eosinophils # 0.6 K/mcL (0.0-0.6); Eosinophils % 3.6 %; Hematocrit 26.4 % (35.3-44.9); Immature Granulocytes % 6.7 % (0-4); Immature Platelets 0.9 % (1.1-6.1); Lymphocytes # 2.6 K/mcL (0.6-4.6); Lymphocytes % 15.1 %; Mean Corpuscular HGB Conc 34.1 g/dL (31.6-35.5); Mean Corpuscular Hemoglobin 36.6 pg (28.0-33.3); Mean Corpuscular Volume 107.3 fL (83.0-100.0); Monocytes # 1.7 K/mcL (0.0-1.3); Monocytes % 9.7 %; Platelet Count 151 K/mcL (140-400); Red Blood Count 2.46 M/mcL (3.82-4.97); Red Cell Distribution Width 16.6 % (11.5-14.5); Segmented Neutrophils % 63.4 %; White Blood Count 17.4 K/mcL (4.3-11.1)
[2022-01-17 04:18] LABS: Alanine Aminotransferase 15 Units/L (7-52); Albumin 1.9 g/dL (3.5-5.7); Albumin/Globulin Ratio 0.6 (1.1-2.2); Alkaline Phosphatase 112 Units/L (34-104); Aspartate Amino Transferase 104 Units/L (13-39); BUN/Creatinine Ratio 16 (6-26); Bilirubin,Total 2.9 mg/dL (0.3-1.0); Blood Urea Nitrogen 9 mg/dL (8-23); Calcium 7.4 mg/dL (8.6-10.3); Carbon Dioxide 27 mEq/L (23-29); Chloride 105 mEq/L (98-107); Glucose 110 mg/dL (70-105); Osmolality,Calculated 279 (280-300); Potassium 3.4 mEq/L (3.5-5.1); Sodium 135 mEq/L (136-145); Total Protein 4.9 g/dL (6.4-8.9)
[2022-01-17 05:24] LABS: Platelet Estimate Normal (Normal)
[2022-01-17] MEDS: Insulin LISPRO 300 UNITS/3 ML VIAL SUBQ SCH ×3 (09:04→18:10)
[2022-01-17] MEDS: Vancomycin Oral Soln 125 MG/2.5 ML UDC PO SCH ×4 (09:43→21:00)
[2022-01-17] MEDS: Doxycycline 100 MG CAPSULE PO SCH ×2 (09:44→21:01)
[2022-01-17] MEDS: Furosemide 40 MG TABLET PO SCH (09:44)
[2022-01-17] MEDS: Pantoprazole 40 MG VIAL IVP SCH (09:44)
[2022-01-17] MEDS: Carbidopa/Levodopa 25/100 TABLET PO SCH ×3 (09:44→21:01)
[2022-01-17] MEDS: Lactobacillus 1 EACH CAP.SPRINK PO SCH ×2 (09:45→21:01)
[2022-01-17] MEDS: Spironolactone 25 MG TABLET PO SCH (09:45)
[2022-01-18 02:57] LABS: Basophils % 0.4 %; Hemoglobin 8.7 g/dL (11.5-15.4)
[2022-01-18 02:59] LABS: Basophils # 0.1 K/mcL (0.0-0.2); Eosinophils # 0.7 K/mcL (0.0-0.6); Eosinophils % 3.6 %; Hematocrit 26.5 % (35.3-44.9); Immature Granulocytes % 7.7 % (0-4); Immature Platelets 0.9 % (1.1-6.1); Lymphocytes # 2.8 K/mcL (0.6-4.6); Mean Corpuscular HGB Conc 32.8 g/dL (31.6-35.5); Mean Corpuscular Hemoglobin 35.8 pg (28.0-33.3); Mean Corpuscular Volume 109.1 fL (83.0-100.0); Mean Platelet Volume 9.2 fL (9.4-12.4); Monocytes # 1.6 K/mcL (0.0-1.3); Monocytes % 8.7 %; Nucleated Red Blood Cells 0.1 /100 WBC (0); Platelet Count 152 K/mcL (140-400); Red Blood Count 2.43 M/mcL (3.82-4.97); Red Cell Distribution Width 16.5 % (11.5-14.5); Segmented Neutrophils % 64.6 %; White Blood Count 18.5 K/mcL (4.3-11.1)
[2022-01-18 03:16] LABS: BUN/Creatinine Ratio 16 (6-26); Blood Urea Nitrogen 8 mg/dL (8-23); Calcium 7.2 mg/dL (8.6-10.3); Carbon Dioxide 27 mEq/L (23-29); Chloride 106 mEq/L (98-107); Glucose 129 mg/dL (70-105); Osmolality,Calculated 282 (280-300); Potassium 4.1 mEq/L (3.5-5.1); Sodium 136 mEq/L (136-145)
[2022-01-18] MEDS: Insulin LISPRO 300 UNITS/3 ML VIAL SUBQ SCH ×3 (07:56→16:57)
[2022-01-18] MEDS: Carbidopa/Levodopa 25/100 TABLET PO SCH ×3 (08:58→20:30)
[2022-01-18] MEDS: Lactobacillus 1 EACH CAP.SPRINK PO SCH ×2 (08:58→20:30)
[2022-01-18] MEDS: Pantoprazole 40 MG VIAL IVP SCH (08:58)
[2022-01-18] MEDS: Doxycycline 100 MG CAPSULE PO SCH ×2 (08:58→20:30)
[2022-01-18] MEDS: Vancomycin Oral Soln 125 MG/2.5 ML UDC PO SCH ×4 (08:58→20:30)
[2022-01-18] MEDS: Nystatin POWDER 30 GM BOTTLE TP SCH ×3 (08:58→20:41)
[2022-01-18] MEDS: Furosemide 40 MG TABLET PO SCH (08:59)
[2022-01-18] MEDS: Piperacillin/Tazobactam 3.375 GM in 0.9 % Sodium Chloride Mini Bag 100 ML IVPB SCH ×2 (08:59→14:54)
[2022-01-18] MEDS: Spironolactone 25 MG TABLET PO SCH (08:59)
[2022-01-18] MEDS ORDERED: *HR* Propofol 200 MG/20 ML VIAL IVP ONE (12:40)
[2022-01-18] MEDS ORDERED: *HR* FentaNYL (PF) 100 MCG/2 ML VIAL ONE (12:40)
[2022-01-18] MEDS ORDERED: Lidocaine -MPF 2% 5 ML VIAL ONE (12:42)
[2022-01-18] MEDS ORDERED: Ondansetron 4 MG/2 ML VIAL ONE (12:42)
[2022-01-18] MEDS ORDERED: Lidocaine HCL 4 ML Topical Solution (Laryng-O-Jet Kit Sterile Pak) TP ONE (12:43)
[2022-01-18 20:56] LABS: Appearance of Body Fluid Clear (Clear); Volume of Body Fluid 27 mL
[2022-01-19] MEDS: Lactobacillus 1 EACH CAP.SPRINK PO SCH ×2 (08:30→20:56)
[2022-01-19] MEDS: Furosemide 40 MG TABLET PO SCH (08:30)
[2022-01-19] MEDS: Carbidopa/Levodopa 25/100 TABLET PO SCH ×3 (08:30→20:56)
[2022-01-19] MEDS: Spironolactone 25 MG TABLET PO SCH (08:31)
[2022-01-19] MEDS: Pantoprazole 40 MG VIAL IVP SCH (08:32)
[2022-01-19] MEDS: Insulin LISPRO 300 UNITS/3 ML VIAL SUBQ SCH ×3 (08:32→17:09)
[2022-01-19] MEDS: Vancomycin Oral Soln 125 MG/2.5 ML UDC PO SCH ×4 (08:32→20:57)
[2022-01-19] MEDS: Nystatin POWDER 30 GM BOTTLE TP SCH ×3 (08:33→20:58)
[2022-01-19 11:27] LABS: Basophils % 0.2 %; Hemoglobin 8.8 g/dL (11.5-15.4); Mean Platelet Volume 9.6 fL (9.4-12.4); Red Cell Distribution Width 15.8 % (11.5-14.5)
[2022-01-19 11:28] LABS: Basophils # 0.1 K/mcL (0.0-0.2); Hematocrit 26.3 % (35.3-44.9); Immature Granulocytes % 4.2 % (0-4); Immature Platelets 1.3 % (1.1-6.1); Lymphocytes # 1.2 K/mcL (0.6-4.6); Lymphocytes % 4.9 %; Mean Corpuscular HGB Conc 33.5 g/dL (31.6-35.5); Mean Corpuscular Hemoglobin 36.2 pg (28.0-33.3); Mean Corpuscular Volume 108.2 fL (83.0-100.0); Monocytes # 1.1 K/mcL (0.0-1.3); Monocytes % 4.4 %; Platelet Count 135 K/mcL (140-400); Red Blood Count 2.43 M/mcL (3.82-4.97); Segmented Neutrophils % 86.3 %; White Blood Count 24.5 K/mcL (4.3-11.1)
[2022-01-19 11:40] LABS: BUN/Creatinine Ratio 18 (6-26); Blood Urea Nitrogen 11 mg/dL (8-23); Calcium 8.1 mg/dL (8.6-10.3); Carbon Dioxide 29 mEq/L (23-29); Chloride 99 mEq/L (98-107); Glucose 326 mg/dL (70-105); Osmolality,Calculated 284 (280-300); Potassium 4.5 mEq/L (3.5-5.1); Sodium 131 mEq/L (136-145)
[2022-01-19 11:51] LABS: Neutrophils # 21.1 K/mcL (1.6-8.9)
[2022-01-19 11:52] LABS: Platelet Estimate Slight Decrease (Normal)
[2022-01-20 05:16] LABS: White Blood Count 20.7 K/mcL (4.3-11.1)
[2022-01-20 05:17] LABS: Basophils % 0.1 %; Eosinophils # 0.1 K/mcL (0.0-0.6); Eosinophils % 0.5 %; Hematocrit 24.7 % (35.3-44.9); Hemoglobin 8.4 g/dL (11.5-15.4); Immature Granulocytes % 5.2 % (0-4); Lymphocytes # 1.7 K/mcL (0.6-4.6); Lymphocytes % 8.1 %; Mean Corpuscular Hemoglobin 35.9 pg (28.0-33.3); Mean Corpuscular Volume 105.6 fL (83.0-100.0); Mean Platelet Volume 9.4 fL (9.4-12.4); Monocytes # 1.2 K/mcL (0.0-1.3); Neutrophils # 16.6 K/mcL (1.6-8.9); Platelet Count 115 K/mcL (140-400); Red Blood Count 2.34 M/mcL (3.82-4.97); Red Cell Distribution Width 15.8 % (11.5-14.5); Segmented Neutrophils % 80.1 %
[2022-01-20 07:27] VITALS: O2SAT 98
[2022-01-20] MEDS: Spironolactone 25 MG TABLET PO SCH (08:03)
[2022-01-20] MEDS: Lactobacillus 1 EACH CAP.SPRINK PO SCH (08:03)
[2022-01-20] MEDS: Nystatin POWDER 30 GM BOTTLE TP SCH ×2 (08:03→13:56)
[2022-01-20] MEDS: Carbidopa/Levodopa 25/100 TABLET PO SCH ×2 (08:03→13:56)
[2022-01-20] MEDS: Furosemide 40 MG TABLET PO SCH (08:03)
[2022-01-20] MEDS: Vancomycin Oral Soln 125 MG/2.5 ML UDC PO SCH ×3 (08:04→16:06)
[2022-01-20] MEDS: Insulin LISPRO 300 UNITS/3 ML VIAL SUBQ SCH ×3 (08:04→16:24)
[2022-01-20 13:18] LABS: Adenovirus Not Detected (Not Detect); Bordetella Pertussis Not Detected (Not Detect); Chlamydophila pneumoniae Not Detected (Not Detect); Coronavirus 229E Not Detected (Not Detect); Coronavirus HKU1 Not Detected (Not Detect); Coronavirus NL63 Not Detected (Not Detect); Coronavirus OC43 Not Detected (Not Detect); Human Metapneumovirus Not Detected (Not Detect); Human Rhinovirus/Enterovirus Not Detected (Not Detect); Influenza A Subtype 2009 H1 Not Detected (Not Detect); Influenza B Not Detected (Not Detect); Mycoplasma pneumoniae Not Detected (Not Detect); Parainfluenza Virus 1 Not Detected (Not Detect); Parainfluenza Virus 2 Not Detected (Not Detect); Parainfluenza Virus 3 Not Detected (Not Detect); Parainfluenza Virus 4 Not Detected (Not Detect); Respiratory Syncytial Virus Not Detected (Not Detect); SARS-CoV-2 Not Detected (Not Detect)
[2022-01-20 16:02] VITALS: BP 102/56; PULSE 69; TEMP 98.3
[2022-01-21 09:36] LABS: ANA IgG by ELISA NONE DETECTED (None Detected)
[2022-01-21 19:25] LABS: ANA HEp-2 IgG IFA <1:80 (<1:80)
[2022-01-25 02:36] LABS: ANCA IFA Titer <1:20 (<1:20)
[2022-01-25 16:10] LABS: ANCA IFA Pattern NONE DETECTED (None Detected); Serine Protease-3 Antibody 13 AU/mL (0-19)
== END 2022-01-20 18:09 | DRG 853 ==
LOC: 3BNU → SUATTDRO 01-13 03:56
PROVIDERS: ADMIT Internal Medicine; ATTEND Registered Nurse